=== PATIENT | male | born 1980 | race Hispanic/Latino ===

== ENCOUNTER 2023-06-01 12:11 | Emergency (ER) | payer SELFPAY ==
[2023-06-01] MEDS: Sodium Chloride 0.9% 1,000 ML IV ONE (12:34)
[2023-06-01 12:45] LABS: BASOPHILS ABSOLUTE AUTO 0.01 K/uL (0.00-0.20); BASOPHILS PERCENT AUTO 0.2 % (0.0-1.0); EOSINOPHILS ABSOLUTE AUTO 0.02 K/uL (0.00-0.45); EOSINOPHILS PERCENT AUTO 0.3 % (0.0-6.0); HEMATOCRIT 47.9 % (42.0-52.0); IMMATURE GRAN ABSOLUTE AUTO 0.01 K/uL (0.00-0.05); IMMATURE GRAN PERCENT AUTO 0.2 % (0.0-0.4); LYMPHOCYTES ABSOLUTE AUTO 1.31 K/uL (1.00-4.80); LYMPHOCYTES PERCENT AUTO 21.2 % (24.0-44.0); MEAN CORPUSCULAR HGB CONC 33.4 g/dL (32.0-36.0); MEAN CORPUSCULAR VOLUME 86.8 fL (83.0-99.0); MEAN PLATELET VOLUME 10.7 fL (9.4-12.4); MONOCYTES ABSOLUTE AUTO 0.69 K/uL (0.00-0.80); MONOCYTES PERCENT AUTO 11.1 % (0.0-8.0); NEUTROPHILS ABSOLUTE AUTO 4.15 K/uL (1.80-7.70); PLATELET COUNT,PLT 153 K/uL (150-400); RED BLOOD CELL COUNT 5.52 M/uL (4.52-5.90); WHITE BLOOD CELL COUNT,WBC 6.19 K/uL (3.9-11.3)
[2023-06-01 12:56] LABS: INR 0.98 (0.86-1.11)
[2023-06-01 13:18] LABS: LACTIC ACID 0.9 mmol/L (0.4-2.0)
[2023-06-01 13:24] LABS: CORONAVIRUS COVID-19 NAA NEGATIVE (NEGATIVE); INFLUENZA A NAA NEGATIVE (NEGATIVE); INFLUENZA B NAA POSITIVE (NEGATIVE); RESPIRATORY SYNCYTIAL VIR NAA NEGATIVE (NEGATIVE)
[2023-06-01 13:25] LABS: A/G RATIO 1.1 (0.9-1.6); ALBUMIN 3.6 g/dL (3.4-5.0); BILIRUBIN TOTAL 0.4 mg/dL (0.2-1.0); CALCIUM 8.9 mg/dL (8.5-10.1); CARBON DIOXIDE,CO2 26.1 mmol/L (21.0-32.0); CREATININE 1.1 mg/dL (0.8-1.3); EST CRCL DRUG DOSING (CG) 93.17 mL/min; POTASSIUM,K 4.3 mmol/L (3.5-5.1); PROTEIN TOTAL,TP 6.9 g/dL (6.4-8.2)
== END 2023-06-01 15:03 | disposition home or self-care (01) ==
LOC: MW.ED 12:11
DX: J10.1 Influenza due to other identified influenza virus with other respiratory manifestations (principal); Z21 Asymptomatic human immunodeficiency virus [HIV] infection status
CPT/HCPCS: 0241U; 36415; 71046; 80053; 83605; 85025; 85610; 87040; 96360; 99284; J7030; 99283